=== PATIENT | female | born 1990 | race Two or more races ===

== ENCOUNTER 2022-01-15 20:32 | Emergency (ER) | payer MEDICAID, OTHER ==
[~2022-01-15] VITALS: Ht 165.1 cm; Wt 68.2 kg
[2022-01-15] MEDS ORDERED: VENL-53 PO (21:29)
[2022-01-15 21:46] LABS: COVID AG,FIA SOURCE NASAL SWAB
[2022-01-15 22:10] LABS: INFLUENZA TYPE B NEGATIVE FOR TYPE B (NEGATIVE)
[2022-01-15 22:17] LABS: INFLUENZA TYPE A POSITIVE FOR TYPE A (NEGATIVE)
[2022-01-15] MEDS ORDERED: ACETAMINOPHEN 500 MG TABLET PO ONE (22:30)
[2022-01-16] MEDS ORDERED: SODIUM CHLORIDE 0.9% 1,000 ML IV ONE
[2022-01-16] MEDS ORDERED: ONDANSETRON HCL 4 MG/2 ML VIAL IVP ONE
[2022-01-16 01:20] VITALS: BP 115/82
== END 2022-01-16 01:23 | disposition home or self-care (01) ==
LOC: EMS 20:48
DX: O99.512 Diseases of the respiratory system complicating pregnancy, second trimester (principal); O21.9 Vomiting of pregnancy, unspecified; O26.892 Other specified pregnancy related conditions, second trimester; F32.9 Major depressive disorder, single episode, unspecified; Z20.822 Contact with and (suspected) exposure to COVID-19; Z3A.16 16 weeks gestation of pregnancy
CPT/HCPCS: 87426; 87804; 93005; 96361; 96374; 99284; J2405; J7030